=== PATIENT | female | born 1970 | race Caucasian/White ===

== ENCOUNTER → 2017-04-16 | Outpatient (CLI) | payer BC ==
--- NOTE | 2017-04-18 09:08 | MM ---
Reason for exam: screening (asymptomatic). Last mammogram was performed 1 year ago. History: Patient is postmenopausal. Family history of breast cancer in mother at age 51. Taking estrogen for 6 months. Physical Findings: A clinical breast exam by your physician is recommended on an annual basis and results should be correlated with mammographic findings. MG Screening Mammo w CAD Bilateral CC and MLO view(s) were taken. Prior study comparison: April 06, 2016, bilateral MG screening mammo w CAD. March 30, 2015, bilateral MG screening mammo w CAD. June 13, 2011, CAD bilateral diagnostic mammogram. The breast tissue is almost entirely fat. No significant changes when compared with prior studies. ASSESSMENT: Negative, BI-RAD 1 RECOMMENDATION: Routine screening mammogram of both breasts in 1 year.
== END | disposition home or self-care (01) ==
LOC: RADMAMWWP 16:07
PROVIDERS: ATTEND Family Medicine
DX: Z12.31 Encounter for screening mammogram for malignant neoplasm of breast (principal)

== ENCOUNTER → 2017-10-21 | Outpatient (CLI) | payer BC | END | disposition home or self-care (01) | LOC: LABWHC1 15:53 | PROVIDERS: ATTEND Physician Assistant | DX: K50.00 Crohn's disease of small intestine without complications (principal) | CPT/HCPCS: 36415; 86480 ==

== ENCOUNTER → 2018-05-08 | Outpatient (CLI) | payer BC ==
--- NOTE | 2018-05-09 11:19 | MM ---
Reason for exam: screening (asymptomatic). Last mammogram was performed 1 year and 1 month ago. History: Patient is postmenopausal. Family history of breast cancer in mother at age 51. Taking estrogen for 6 months. Physical Findings: A clinical breast exam by your physician is recommended on an annual basis and results should be correlated with mammographic findings. MG Screening Mammo w CAD Bilateral CC and MLO view(s) were taken. Prior study comparison: April 16, 2017, bilateral MG screening mammo w CAD. April 06, 2016, bilateral MG screening mammo w CAD. There are scattered fibroglandular densities. No suspicious abnormality. No significant changes when compared with prior studies. ASSESSMENT: Negative, BI-RAD 1 RECOMMENDATION: Routine screening mammogram of both breasts in 1 year.
== END | disposition home or self-care (01) ==
LOC: RADMAMWWP 16:15
PROVIDERS: ATTEND Family Medicine
DX: Z12.31 Encounter for screening mammogram for malignant neoplasm of breast (principal)
CPT/HCPCS: 77067

== ENCOUNTER → 2018-07-01 | Outpatient (CLI) | payer BC ==
--- NOTE | 2018-07-01 15:30 | NM ---
Nuclear medicine hepatobiliary scan. HISTORY: Pain. DOSAGE: The patient received 8 ounces of ensure plus and 5.2 mCi of Technetium 99m Choletec. FINDINGS: There is normal hepatic extraction. The gallbladder is seen by 40 minutes. There is bilia ry to bowel clearance by 10 minutes. Ejection fraction is 16%. IMPRESSION: 1. Abnormal ejection fraction of 16%. Correlate for biliary dyskinesia.
== END | disposition home or self-care (01) ==
LOC: RADNMMAIN 12:54
PROVIDERS: ATTEND Surgery
DX: R94.8 Abnormal results of function studies of other organs and systems (principal); R10.11 Right upper quadrant pain
CPT/HCPCS: 78226; A9537

== ENCOUNTER → 2018-10-31 | Outpatient (CLI) | payer BC | END | disposition home or self-care (01) | LOC: LABWHC1 13:20 | DX: K50.90 Crohn's disease, unspecified, without complications (principal) | CPT/HCPCS: 36415; 86480 ==

== ENCOUNTER → 2019-05-27 | Outpatient (CLI) | payer BC ==
--- NOTE | 2019-05-28 11:37 | MM ---
Reason for exam: screening (asymptomatic). Last mammogram was performed 1 year and 1 month ago. History: Patient is postmenopausal. Family history of breast cancer in mother at age 51. Taking estrogen for 6 months. Physical Findings: A clinical breast exam by your physician is recommended on an annual basis and results should be correlated with mammographic findings. MG Screening Mammo w CAD Bilateral CC and MLO view(s) were taken. Prior study comparison: May 08, 2018, bilateral MG screening mammo w CAD. April 16, 2017, bilateral MG screening mammo w CAD. There are scattered fibroglandular densities. There is no discrete abnormality. ASSESSMENT: Negative, BI-RAD 1 RECOMMENDATION: Routine screening mammogram of both breasts in 1 year.
== END | disposition home or self-care (01) ==
LOC: RADMAMWWP 13:34
PROVIDERS: ATTEND Family Medicine
DX: Z12.31 Encounter for screening mammogram for malignant neoplasm of breast (principal)
CPT/HCPCS: 77067

== ENCOUNTER 2019-07-16 09:09 | Day surgery (SDC) | payer BC ==
[2019-07-14 13:08] VITALS: BMI 32.4
[~2019-07-16 09:09] MED LIST: LACTATED RINGERS 1,000 ML IV SCH
[2019-07-16 09:26] VITALS: TEMP 97.1
[2019-07-16] MEDS ORDERED: PROPOFOL 10 MG/ML 20 ML VIAL IV ONE (09:48)
[2019-07-16] MEDS ORDERED: LIDOCAINE 1% INJ 10MG/ML (20 ML MDV) ONE (09:48)
[2019-07-16 10:59] VITALS: RESP 18
[2019-07-16 11:35] VITALS: BP 131/89; PULSE 96
[2019-07-16] MEDS ORDERED: IBUPROFEN 200 MG TAB PO ONE (11:35)
--- NOTE | 2019-07-16 12:44 | P.PCN ---
Date of Procedure: 07/16/19 Description of Procedure: Brief history: 48-year-old female with a history of Crohn's disease diagnosed at the age of 17 previously on steroid therapy the patient started in 2013 on Remicade and is status post terminal ileal resection and right colonic resection in 1997. Patient was seen in clinic in May reporting that symptoms are stable with 4 bowel movements daily with occasional bright red blood per rectum. Procedure performed: Esophagogastroduodenoscopy with biopsy Colonoscopy with biopsy Estimated blood loss: Minimal. Preoperative diagnosis: GERD, Crohn's disease Anesthesia: [facility] Procedure: After informed consent was obtained from the patient was brought into the endoscopy unit and IV sedation was administered by anesthesia under continuous monitoring. Initially upper endoscopy was done. The Olympus GF 190 video endoscope was inserted inserted into the mouth and esophagus intubated without any difficulty and was gradually advanced into the stomach and duodenum and carefully examined. The bulb and second part of the duodenum appeared normal, with biopsies taken. The scope was then withdrawn into the stomach adequately insufflated with air and upon careful examination the antrum and body, cardia and fundus appeared normal, except for some mild erythema in the antrum and body in a linear pattern suggestive of mild gastritis with biopsies taken. The scope was then withdrawn into the esophagus. The GE junction was located at 35 cm to the incisors and biopsied. It appeared regular with no erythema erosions or ulcerations. Rest of the esophagus appeared normal. Patient tolerated the procedure well. At this time the patient continued to remain sedation. Initial digital rectal examination was normal, perianal exam was significant for external hemorrhoids and an area which appears to be consistent with prior abscess. Olympus CF 190 video colonoscope was then inserted into the rectum and gradually advanced to the cecum without any difficulty. Careful examination was performed as the scope was gradually being withdrawn. The prep was excellent. The entire examined colon appeared normal with no inflammation, erythema or erosions noted, the patient had anatomy consistent with prior surgical resection of the small bowel. Random biopsies were taken of the terminal ileum and every 10 cm starting from 80 cm from the anal verge. Retroflexion was performed in the rectum and no lesions were noted. Patient tolerated the procedure well. Impression: 1. Mild gastritis in body, biopsied. Biopsies of the duodenum and GE junction. 2. Anatomy consistent with prior small bowel resection. No active colitis noted. Random biopsies taken of the terminal ileum and the entire colon starting at 80 cm from the anal verge and then every subsequent 10 cm. Recommendations: Findings of this examination were discussed with the patient as well as her family. Okay to resume diet. Continue current medical management. Await pathology from biopsies. Follow up with gastroenterology as loosely scheduled
== END 2019-07-16 11:43 | disposition home or self-care (01) ==
LOC: ORWHC2ENDO 09:09
PROVIDERS: ATTEND Internal Medicine
DX: K29.50 Unspecified chronic gastritis without bleeding (principal); K50.90 Crohn's disease, unspecified, without complications; K21.9 Gastro-esophageal reflux disease without esophagitis; K52.9 Noninfective gastroenteritis and colitis, unspecified; I10 Essential (primary) hypertension; Z79.899 Other long term (current) drug therapy; Z90.49 Acquired absence of other specified parts of digestive tract; Z98.51 Tubal ligation status; Z98.890 Other specified postprocedural states; Z88.1 Allergy status to other antibiotic agents
CPT/HCPCS: 88305; 45380; 43239; J2001; J2704

== ENCOUNTER → 2020-09-09 | Outpatient (CLI) | payer BC ==
--- NOTE | 2020-09-09 12:53 | EST ---
EXERCISE STRESS AGE: 50 SEX: F HT: 5'5" WT: 423 lbs. PROTOCOL: Barry STAGE: 3 DURATION OF EXERCISE: 7:00 HEART RATE REST: 90 BLOOD PRESSURE REST: 157/102 MAXIMUM HEART RATE ACHIEVED: 164 MAXIMUM BLOOD PRESSURE: 209/105 85% MPHR: 145 100% MPHR: 170 METS: 8.5 INDICATIONS: Chest pain. CLINICAL INFORMATION: Baseline rhythm is a sinus mechanism, rate of 90, normal axis intervals, normal echocardiogram. Baseline blood pressure 157/102 mmHg. Patient exercised on Barry protocol for 7 minutes, reaching peak rate 162 beats per minute which is equal to 96% maximum predicted heart rate. Peak blood pressure 209/105 mmHg. Test was terminated due to fatigue. There was no chest pain. Electrocardiograph monitoring revealed no evidence of diagnostic ischemic ST deviation. CONCLUSION: 1. Average exercise tolerance with normal echocardiograph response to exercise. 2. No significant arrhythmia. MMODL / IJN: [id number] /
== END | disposition home or self-care (01) ==
LOC: RADNMMAIN 08:49
PROVIDERS: ATTEND Family Medicine
DX: R07.9 Chest pain, unspecified (principal)
CPT/HCPCS: 93017

== ENCOUNTER → 2020-09-23 | Outpatient (CLI) | payer BC ==
--- NOTE | 2020-09-23 16:05 | XR ---
EXAMINATION TYPE: XR chest 2V DATE OF EXAM: 09/23/2020 COMPARISON: NONE HISTORY: Shortness of breath TECHNIQUE: Frontal and lateral views of the chest are obtained. FINDINGS: Scattered senescent parenchymal changes noted. Hyperinflation compatible with COPD. No evidence for infiltrate. No evidence for atelectasis. Heart size is stable. Mediastinal structures are stable and grossly unremarkable. No evidence for hilar prominence. Degenerative changes dorsal spine. IMPRESSION: 1. No evidence for acute pulmonary disease.
== END | disposition home or self-care (01) ==
LOC: RADXRMAIN 14:58
PROVIDERS: ATTEND Family Medicine
DX: R07.89 Other chest pain (principal)
CPT/HCPCS: 71046

== ENCOUNTER → 2022-10-06 | Outpatient (CLI) | payer BC ==
--- NOTE | 2022-10-07 08:09 | MR ---
EXAMINATION TYPE: MR pelvis wo/w con DATE OF EXAM: 10/06/2022 COMPARISON: None CLINICAL INDICATION:Female, 52 years old with history of K50.90 Crohn's disease; TECHNIQUE: Triplane multisequence imaging was performed of the pelvis. IV Contrast: 9 cc Gadavist FINDINGS: Reproductive: Vagina: There is a high T2 focus near the right Bartholin's gland measuring up to 7 mm. Uterus: Surgically absent Ovaries: Ovaries are not definitively visualized and may be surgically absent. Bladder: Unremarkable. Bowel: No bowel wall thickening. There is nondistention of the distal bowel. Peritoneum: A small amount of free fluid in the pelvis. Lymph nodes: No evidence of adenopathy. Vasculature: Unremarkable. Musculoskeletal: Bone marrow signal is within normal signal intensity. Abdominal wall/soft tissues: There is streaky high T2 signal in the perineum within the bilateral glu teal folds more posteriorly to the anus. Tiny focus of peripheral enhancement with central low T1 sig nal corresponds with higher T2 signal measuring 8 mm located at approximately the 7:00 position to th e anus. This is in close proximity to the anus series 1001 image 85. IMPRESSION: 1. Bilateral gluteal cleft soft tissue abnormalities around the anus there is a 8 mm focus of periph eral enhancement could represent small abscess versus blind-ending perirectal fistulous tract. 2. No evidence for bowel wall thickening or evidence for intra-abdominal free fluid to suggest absce ss. 3. 7 mm right Bartholin's gland cyst.
== END | disposition home or self-care (01) ==
LOC: RADMRIMAIN 11:11
PROVIDERS: ATTEND Internal Medicine Gastroenterology
DX: K50.90 Crohn's disease, unspecified, without complications (principal); N75.0 Cyst of Bartholin's gland; Q82.8 Other specified congenital malformations of skin
CPT/HCPCS: 72197; A9585

== ENCOUNTER → 2023-06-25 | Day surgery (SDC) | payer BC ==
[2023-06-20 16:10] VITALS: BMI 30.6
[~2023-06-25] MED LIST changes: -LACTATED RINGERS 1,000 ML IV SCH; +LIDOCAINE 2% INJ 20 MG/ML (2 ML VIAL) ONE; +PROPOFOL 10 MG/ML 20 ML VIAL IV ONE
[2023-06-25 08:00] VITALS: TEMP 97.2
[2023-06-25] MEDS: LACTATED RINGERS 1,000 ML IV SCH ×2 (08:01→08:39)
--- NOTE | 2023-06-25 08:53 | P.PCN ---
Date of Procedure: 06/25/23 Procedure(s) Performed: BRIEF HISTORY: Patient is a 52-year-old, pleasant, white female scheduled for an upper endoscopy as a part of evaluation of intermittent dysphagia to solids for the last several months duration. She has long-standing history of eosinophilic esophagitis is presently maintained on omeprazole 20 mg daily as well as topical steroids with some help.. PROCEDURE PERFORMED: Esophagogastroduodenoscop with biopsy and dilation y. PREOPERATIVE DIAGNOSIS: Intermittent dysphagia to solids/history of eosinophilic esophagitis. IV sedation per anesthesia. PROCEDURE: After informed consent was obtained, the patient was brought into the endoscopy unit. IV sedation was administered by Anesthesia under continuous monitoring. Initially the Olympus GIF-140 video endoscope was inserted into the mouth. Esophagus intubated without any difficulty. It was gradually advanced into the stomach and duodenum and carefully examined. The bulb and the second part of the duodenum appeared normal. The scope at this time was withdrawn to the stomach, adequately insufflated with air, and upon careful examination, mucosa of the antrum had mild gastritis,, body, cardia and the fundus appeared normal. The scope was then withdrawn into the esophagus. Small hiatal hernia noted. The GE junction was located at 40 cm from the incisors. There were multiple superficial mucosal rings noted in the mid and distal esophagus and a stricture at the GE junction which was dilated using 18 mm TTS balloon for 10 seconds. At this time brisk oozing was identified at the site of dilation which subsequently resolved and further dilation was not performed. Multiple biopsies were done from the mid and distal esophagus and the patient tolerated the procedure well. IMPRESSION: 1. Multiple superficial mucosal rings involving the mid and distal esophagus with a distal esophageal stricture status post balloon dilation using 18 mm TTS balloon. 2. Small hiatal hernia.. RECOMMENDATIONS: The findings of this examination were discussed with the patient as well as a family. She'll remain on clear liquids today. Continue with omeprazole 20 mg twice daily as well as topical steroids on a regular basis. Follow up in office in 3 months..
[2023-06-25 09:18] VITALS: BP 120/82; PULSE 63; RESP 16
== END ==
LOC: ORWHC2ENDO 07:34
PROVIDERS: ATTEND Internal Medicine Gastroenterology
DX: K21.00 Gastro-esophageal reflux disease with esophagitis, without bleeding (principal); K22.2 Esophageal obstruction; K44.9 Diaphragmatic hernia without obstruction or gangrene; I10 Essential (primary) hypertension; E78.5 Hyperlipidemia, unspecified; J45.909 Unspecified asthma, uncomplicated; M19.90 Unspecified osteoarthritis, unspecified site; Z88.1 Allergy status to other antibiotic agents; Z79.51 Long term (current) use of inhaled steroids; Z79.811 Long term (current) use of aromatase inhibitors; Z79.1 Long term (current) use of non-steroidal anti-inflammatories (NSAID); Z79.899 Other long term (current) drug therapy
CPT/HCPCS: 88305; 43239; 43249; J2704; J2001; C1726

== ENCOUNTER 2023-12-16 08:32 | Emergency (ER) | payer BC ==
--- NOTE | 2023-12-16 08:57 | ED ---
Skin/Abscess/FB HPI - General Chief complaint: Skin/Abscess/Foreign Body Stated complaint: Cyst Time Seen by Provider: 12/16/23 08:53 Source: patient, RN notes reviewed Mode of arrival: ambulatory Limitations: no limitations - History of Present Illness Initial comments: This is a 53-year-old female who presents to the emergency department for a rectal abscess. Patient has Crohn's disease and has a longstanding history of recurrent perirectal abscesses. He is scheduled to have surgery with Dr. Sepulveda in 2 days to have it both drained and investigated, as she states that it tends to have fairly deep tracts. This morning, she noticed it starting to drain, but states that it was draining out of several spots. Also reports increasing pain. - Related Data Home Medications Medication Instructions Recorded Confirmed ALPRAZolam [Xanax] 0.25 mg PO TID 07/14/19 12/12/23 Citalopram Hydrobromide 40 mg PO HS 07/14/19 12/12/23 [Citalopram HBr] Omeprazole 20 mg PO HS 07/14/19 12/12/23 Albuterol Inhaler [Ventolin Hfa 1 puff INHALATION DIRECTED PRN 01/01/22 12/12/23 Inhaler] Atorvastatin [Lipitor] 10 mg PO HS 01/01/22 12/12/23 Cholecalciferol [Vitamin D3 (25 50 mcg PO HS 01/01/22 12/12/23 Mcg = 1000 Iu)] Dicyclomine [Bentyl] 20 mg PO BID 01/01/22 12/12/23 Ibuprofen 800 mg PO Q8H PRN 01/01/22 12/12/23 Metoprolol Succinate (ER) [Toprol 100 mg PO HS 01/01/22 12/12/23 Xl] lisinopriL [Zestril] 5 mg PO BID 01/01/22 12/12/23 Budesonide 1 mg PO BID 12/12/23 12/12/23 Unk Inflectra Infusion 1 dose IV Q35D 12/12/23 Previous Rx's Medication Instructions Recorded Cephalexin [Keflex] 500 mg PO Q6HR 10 Days #40 cap 12/16/23 Sulfamethox-Tmp 800-160Mg [Bactrim 1 tab PO Q12HR 10 Days #20 tab 12/16/23 DS 800-160 mg] Allergies Allergy/AdvReac Type Severity Reaction Status Date / Time vancomycin Allergy Rash/Hives Verified 12/16/23 08:52 Review of Systems ROS Statement: Those systems with pertinent positive or pertinent negative responses have been documented in the HPI. ROS Other: All systems not noted in ROS Statement are negative. Past Medical History Past Medical History: Asthma, GERD/Reflux, Hyperlipidemia, Hypertension, Skin Disorder Additional Past Medical History / Comment(s): HYPOGLYCEMIA, VARICOSE VEINS, HEMORRHOIDS, CROHN'S. psoriasis,eczema.rectal fistula abscess. chrohns disease History of Any Multi-Drug Resistant Organisms: MRSA Date of last positivie culture/infection: 2017 MDRO Source:: breast Past Surgical History: Bowel Resection, Breast Surgery, Hysterectomy, Orthopedic Surgery, Tubal Ligation Additional Past Surgical History / Comment(s): SINUS SURGERY, WISDOM TEETH REMOVED, MULTIPLE COLONOSCOPIES, 8 INCHES OF BOWEL REMOVED, SURGERGY ON FISTULAS X4-5, LEFT BREAST BIOPSY, D&C, BILATERAL BUNIONECTOMY. repair rt wrist fx. rt foot fx repair Past Anesthesia/Blood Transfusion Reactions: Family History of Problems w/ Anesthesia Additional Past Anesthesia/Blood Transfusion Reaction / Comment(s): daughter nausea Past Psychological History: Anxiety Smoking Status: Former smoker - Past Family History Father Family Medical History: Cancer Additional Family Medical History / Comment(s): throat tongue cancer Mother Family Medical History: Cancer Additional Family Medical History / Comment(s): breast uterine lung mets to bone General Exam Limitations: no limitations General appearance: alert, in no apparent distress Head exam: Present: atraumatic, normocephalic, normal inspection Respiratory exam: Present: normal lung sounds bilaterally. Absent: respiratory distress, wheezes, rales, rhonchi, stridor Cardiovascular Exam: Present: regular rate, normal rhythm, normal heart sounds. Absent: systolic murmur, diastolic murmur, rubs, gallop, clicks Rectal exam: Present: other (Perirectal abscess with active purulent drainage) Neurological exam: Present: alert, oriented X3, CN II-XII intact Psychiatric exam: Present: normal affect, normal mood Skin exam: Present: warm, dry, intact, normal color. Absent: rash Course Vital Signs 12/16/23 12/16/23 12/16/23 08:48 11:51 14:09 Temperature 98.3 F 98.6 F 98.2 F Pulse Rate 85 65 74 Respiratory 16 20 18 Rate Blood Pressure 96/60 90/65 117/68 O2 Sat by Pulse 97 94 L 97 Oximetry Medical Decision Making - Medical Decision Making This is a 53 year old female who presents to the emergency department for a rectal abscess. Was pt. sent in by a medical professional or institution? @ -No Did you speak to anyone other than the patient for history? @ -No Did you review nursing and triage notes? @ -Yes, and I agree, it is accurate with regards to the patient's symptoms. Were old charts reviewed? @ -No Differential Diagnosis? @ -Differential Rectal Abscess: Hemorrhoid, abscess, tumor, this is not meant to be an all-inclusive list. EKG interpreted by me (3pts min.)? @ -Not obtained X-rays interpreted by me (1pt min.)? @ -Not obtained CT interpreted by me (1pt min.)? @ -Not obtained U/S interpreted by me (1pt. min.)? @ -Not obtained What testing was considered but not performed? (CT, X-rays, U/S, labs)? Why? @ -None What meds were considered but not given? Why? @ -None Did you discuss the management of the patient with other professionals? @ -Yes, Dr. Sepulveda, who advised antibiotics and follow up as scheduled in 2 days. Did you reconcile home meds? @ -No Was smoking cessation discussed for >3mins.? @ -No Was critical care preformed (if so, how long)? @ -No Were there social determinants of health that impacted care today? How? (Home lessness, low income, unemployed, alcoholism, drug addiction, transportation, low edu. Level, literacy, decrease access to med. care, nursing home, rehab)? @ -No Was there de-escalation of care discussed even if they declined? (Discuss DNR or withdrawal of care, Hospice)? @ -No What co-morbidities impacted this encounter? (DM, HTN, Smoking, COPD, CAD, Ca ncer, CVA, Hep., AIDS, mental health diagnosis, sleep apnea, morbid obesity)? @ -Crohn's disease Was patient admitted / discharged? @ -Discharged. Lab work demonstrates leukocytosis and an elevated CRP. Physical exam demonstrates actively draining perirectal abscess. Per the patient, this is a fairly extensive abscess with fairly deep tracking. Given the complexity of the abscess per the patient as well as upcoming surgery, we avoided any manipulation of the abscess and did not perform any sort of incision and drainage. Case discussed with Dr. Sepulveda, general surgery, who advised starting the patient on antibiotics and pain medication with plan to follow up as scheduled for surgery in 2 days. Wound cultures obtained. Rx for Bactrim and keflex provided with dosing instructions reviewed. Patient discharged home in stable condition. Undiagnosed new problem with uncertain prognosis? @ -None Drug Therapy requiring intensive monitoring for toxicity (Heparin, Nitro, Insulin, Cardizem)? @ -None Were any procedures done? @ -None Diagnosis/symptom? @ -Perirectal abscess Acute, or Chronic, or Acute on Chronic? @ -Acute Uncomplicated (without systemic symptoms) or Complicated (systemic symptoms)? @ -Uncomplicated Side effects of treatment? @ -None Exacerbation, Progression, or Severe Exacerbation] @ -Not applicable Poses a threat to life or bodily function? @ -No Return precautions reviewed in depth, the patient is instructed to return to the emergency department with any new, worsening, or concerning symptoms. Patient verbalized understanding. This case was discussed in detail with the attending ED physician, Dr. Chávez. Presentation, findings, and treatment plan discussed in detail as well. - Lab Data Result diagrams: 12/16/23 09:31 12/16/23 09:31 Lab Results 12/16/23 12/16/23 12/16/23 Range/Units 09:31 09:31 09:31 WBC 12.4 H (3.8-10.6) k/uL RBC 4.33 (3.80-5.40) m/uL Hgb 13.4 (11.4-16.0) gm/dL Hct 39.9 (34.0-46.0) % MCV 92.2 (80.0-100.0) fL MCH 31.0 (25.0-35.0) pg MCHC 33.6 (31.0-37.0) g/dL RDW 12.4 (11.5-15.5) % Plt Count 508 H (150-450) k/uL MPV 6.8 Neutrophils % 74 % Lymphocytes % 17 % Monocytes % 7 % Eosinophils % 1 % Basophils % 1 % Neutrophils # 9.2 H (1.3-7.7) k/uL Lymphocytes # 2.1 (1.0-4.8) k/uL Monocytes # 0.8 (0-1.0) k/uL Eosinophils # 0.2 (0-0.7) k/uL Basophils # 0.1 (0-0.2) k/uL Sodium 136 L (137-145) mmol/L Potassium 4.1 (3.5-5.1) mmol/L Chloride 101 (98-107) mmol/L Carbon Dioxide 26 (22-30) mmol/L Anion Gap 9 mmol/L BUN 13 (7-17) mg/dL Creatinine 0.51 L (0.52-1.04) mg/dL Est GFR (CKD-EPI)AfAm >90 (>60 ml/min/1.73 sqM) Est GFR (CKD-EPI)NonAf >90 (>60 ml/min/1.73 sqM) Glucose 113 H (74-99) mg/dL Plasma Lactic Acid Jose M 1.5 (0.7-2.0) mmol/L Calcium 9.0 (8.4-10.2) mg/dL Total Bilirubin 0.7 (0.2-1.3) mg/dL AST 22 (14-36) U/L ALT 13 (4-34) U/L Alkaline Phosphatase 115 (38-126) U/L C-Reactive Protein 6.6 H (<1.0) mg/dL Total Protein 7.9 (6.3-8.2) g/dL Albumin 4.1 (3.5-5.0) g/dL Disposition Clinical Impression: Perirectal abscess Disposition: HOME SELF-CARE Instructions (If sedation given, give patient instructions): Abscess (ED) Additional Instructions: Return to the emergency department with any new, worsening, or concerning symptoms. Take both antibiotics as prescribed for 10 days. Follow up with Dr. Sepulveda as scheduled on Saturday for surgery. Prescriptions: Sulfamethox-Tmp 800-160Mg [Bactrim DS 800-160 mg] 1 tab PO Q12HR 10 Days #20 tab Cephalexin [Keflex] 500 mg PO Q6HR 10 Days #40 cap Is patient prescribed a controlled substance at d/c from ED?: No Referrals: Hardeep Clinton DO [Primary Care Provider] - 1-2 days Time of Disposition: 12:12
[2023-12-16 10:05] LABS: Basophils # (A) 0.1 k/uL (0-0.2); Basophils % (A) 1 %; Eosinophils # (A) 0.2 k/uL (0-0.7); Eosinophils % (A) 1 %; HCT 39.9 % (34.0-46.0); HGB 13.4 gm/dL (11.4-16.0); Lymphocytes # (A) 2.1 k/uL (1.0-4.8); Lymphocytes % (A) 17 %; MCHC 33.6 g/dL (31.0-37.0); MCV 92.2 fL (80.0-100.0); Mean Platelet Volume 6.8; Monocytes # (A) 0.8 k/uL (0-1.0); Monocytes % (A) 7 %; Neutrophils # (A) 9.2 k/uL (1.3-7.7); Neutrophils % (A) 74 %; Platelet Count 508 k/uL (150-450); RBC 4.33 m/uL (3.80-5.40); RDW 12.4 % (11.5-15.5); WBC 12.4 k/uL (3.8-10.6)
[2023-12-16] MEDS: KETOROLAC 15 MG/ML 1 ML VIAL IVP STA (10:12)
[2023-12-16] MEDS: MORPHINE SULFATE 4 MG/ML SYRINGE IVP STA (10:12)
[2023-12-16 11:32] LABS: ALT 13 U/L (4-34); AST 22 U/L (14-36); African American GFR (CKD) >90 (>60 ml/min/1.73 sqM); Albumin 4.1 g/dL (3.5-5.0); Alkaline Phosphatase 115 U/L (38-126); Anion Gap 9 mmol/L; Blood Urea Nitrogen 13 mg/dL (7-17); C Reactive Protein 6.6 mg/dL (<1.0); Carbon Dioxide 26 mmol/L (22-30); Chloride 101 mmol/L (98-107); Glucose 113 mg/dL (74-99); Non-African American GFR(CKD) >90 (>60 ml/min/1.73 sqM); Potassium 4.1 mmol/L (3.5-5.1); Sodium 136 mmol/L (137-145); Total Bilirubin 0.7 mg/dL (0.2-1.3); Total Protein 7.9 g/dL (6.3-8.2)
[2023-12-16] MEDS: SODIUM CHLORIDE 0.9% 1,000 ML IV STA (12:13)
[2023-12-16] MEDS: HYDROmorphone 0.5 MG/0.5 ML SYRINGE IVP STA (12:15)
[2023-12-16] MEDS: cefTRIAXone IN SWFI 1,000 MG/10 ML SYRINGE IVP STA (12:15)
[2023-12-16] MEDS: SULFAMETHOX-TMP 800-160MG 1 EACH TAB PO STA (12:16)
[2023-12-16 14:40] VITALS: BP 117/68; PULSE 74; RESP 18; TEMP 98.2
== END 2023-12-16 14:19 | disposition home or self-care (01) ==
LOC: EC 08:32
DX: K61.1 Rectal abscess (principal); Z88.8 Allergy status to other drugs, medicaments and biological substances; Z87.891 Personal history of nicotine dependence
CPT/HCPCS: 36415; 80053; 83605; 85025; 86140; 87070; 87205; 87075; 87077; 87186; 99283; 96374; 96375 ×3; 96361 ×2; J2270; J0696; J1885; J1170

== ENCOUNTER 2023-12-18 06:45 | Day surgery (SDC) | payer BC ==
[~2023-12-18 06:45] MED LIST changes: -LIDOCAINE 2% INJ 20 MG/ML (2 ML VIAL) ONE; -PROPOFOL 10 MG/ML 20 ML VIAL IV ONE; +Pre Op ABX Message 1 EACH MISC MISCELLANE ONE
[2023-12-18] MEDS ORDERED: LIDOCAINE 1% (10MG/ML) FOR IV START INTRADERMA PRN (06:50)
[2023-12-18] MEDS: LACTATED RINGERS 1,000 ML IV SCH (08:04)
[2023-12-18 08:05] LABS: Glucose,Whole Blood 116 mg/dL (70-110)
[2023-12-18] MEDS: ACETAMINOPHEN TAB 500 MG TAB PO PRN (08:25)
[2023-12-18] MEDS: DEXAMETHASONE SOD PHOSPHATE 4 MG/ML 1 ML VIAL IVP ONE (08:25)
[2023-12-18] MEDS: ONDANSETRON 4 MG/2 ML VIAL ONE (08:25)
[2023-12-18] MEDS: HEPARIN SODIUM,PORCINE 5,000 UNIT/ML 1 ML VIAL SQ PRN (08:31)
[2023-12-18] MEDS ORDERED: SUCCINYLCHOLINE CHLORIDE 200 MG/10 ML VIAL IV ONE (08:57)
[2023-12-18] MEDS ORDERED: MIDAZOLAM 2 MG/2 ML VIAL ONE (08:57)
[2023-12-18] MEDS ORDERED: PROPOFOL 10 MG/ML 20 ML VIAL IV ONE (08:57)
[2023-12-18] MEDS ORDERED: KETOROLAC 15 MG/ML 1 ML VIAL ONE (08:57)
[2023-12-18] MEDS ORDERED: fentaNYL (PF) 50 MCG/ML 2 ML AMP ONE (08:57)
[2023-12-18] MEDS ORDERED: ePHEDrine 50 MG/ML 1 ML VIAL ONE (08:57)
[2023-12-18] MEDS ORDERED: ceFAZolin 1 GM/50 ML BAG (PMX) ONE (09:26)
[2023-12-18] MEDS: SODIUM CHLORIDE 0.9% 50 ML with ceFAZolin 2,000 MG IV ONE (09:27)
[2023-12-18] MEDS: LIDOCAINE 1%-EPI 1:100,000 50 ML VIAL SQ ONE (09:35)
--- NOTE | 2023-12-18 09:59 | P.OP ---
Date of Procedure: 12/18/23 Preoperative Diagnosis: Perirectal abscess History of Crohn's disease Postoperative Diagnosis: Perirectal abscess History of Crohn's disease Procedure(s) Performed: Incision and drainage of perirectal abscess Anesthesia: LUCINA Surgeon: Karlos Sepulveda Estimated Blood Loss (ml): 5 Pathology: none sent Condition: stable Disposition: PACU Description of Procedure: The patient's placed on the operative table in the prone jackknife position of receiving general endotracheal tube anesthesia. Her anus was prepped and draped usual sterile fashion. The patient had evidence of a chronic draining. Abscess in the right lateral position. There were extensive hemorrhoids. This was probed with a a probe. There was no fistula seen to the rectum. At this point the abscess area was unroofed electrocautery. He was is achieved with cautery. And then the wound was packed with wet-to-dry Kerlix dressing. He should top she will. She was sent to recovery room stable condition.
[2023-12-18 10:01] VITALS: TEMP 97
[2023-12-18 11:43] VITALS: RESP 20
[2023-12-18 12:51] VITALS: BP 112/66; PULSE 60
== END 2023-12-18 11:52 | disposition home or self-care (01) ==
LOC: OR 06:45
PROVIDERS: ATTEND Surgery
DX: K61.1 Rectal abscess (principal); K50.90 Crohn's disease, unspecified, without complications
CPT/HCPCS: 46040; J2250; J0330; J1644; J1100; J2405; J0690 ×2; J3010; J1885; J2704

== ENCOUNTER → 2024-05-15 | Outpatient (CLI) | payer BC ==
--- NOTE | 2024-07-21 08:21 | MM ---
Reason for Exam: Screening (asymptomatic). Last mammogram was performed 1 year(s) and 6 month(s) ago. Patient History: Menarche at age 13. First Full-Term at age 24. Left ovary removed at age 38. Right ovary removed at age 38. Hysterectomy at age 38. Postmenopausal. Currently using Estrogen, for 6 months. Mother had breast cancer, age 51. Risk Values: Marti 5 year model risk: 2.1%. NCI Lifetime model risk: 15.7%. Prior Study Comparison: 05/27/2019 Bilateral Screening Mammogram, [facility]. 01/04/2022 Bilateral MG screening mammo w CAD - 2, [facility]. 11/30/2022 Bilateral MG screening mammo w CAD, [facility]. Tissue Density: The breasts are almost entirely fatty. Findings: Analyzed By CAD. Right breast: There is no suspicious group of microcalcifications or new suspicious mass. Left breast: There is no suspicious group of microcalcifications or new suspicious mass. Overall Assessment: Negative, BI-RAD 1 Management: Screening Mammogram of both breasts in [address] [facility] will attempt to contact patient to return for supplemental views and ultrasound if indicated. Patient should continue monthly self-breast exams. A clinical breast exam by your physician is recommended on an annual basis. This exam should not preclude additional follow-up of suspicious palpable abnormalities. Note on Marti scores and lifetime risk: 1. A Marti score greater than 3% is considered moderate risk. If this is the case, consider specialist referral to assess eligibility for a risk reducing agent. 2. If overall lifetime risk for the development of breast cancer is 20% or higher, the patient may qualify for future screening with alternating mammogram and breast MRI. Electronically signed and approved by: Dominic Martinez DO
== END | disposition home or self-care (01) ==
LOC: RADMAMWWP 12:00
PROVIDERS: ATTEND Family Medicine
DX: Z12.31 Encounter for screening mammogram for malignant neoplasm of breast
CPT/HCPCS: 77067